=== PATIENT | male | born 1970 | race Caucasian/White ===

== ENCOUNTER 2016-12-15 16:04 | Emergency (ER) | payer OTHER ==
--- NOTE | 2016-12-15 17:31 | DIAGNOSTIC IMAGING REPORT ---
PROCEDURE: XR CHEST 2 VIEW INDICATION: COUGH TECHNIQUE: PA and lateral view. COMPARISON: None. FINDINGS: Minor left basilar scarring. Cardiovascular structures are normal. Bony thorax is unremarkable. IMPRESSION: 1. Minor left basilar scarring
--- NOTE | 2016-12-15 19:03 | ED NURSING NOTES ---
Clinical Report - Nurses [facility] [place] [address] 12/15/2016 16:07 Patient: JUDY LEVI TRIAGE Triage time 16:15 Dec 15 2016. Acuity: LEVEL 3. Chief Complaint: "FLU", FEVER, COUGH and BODY ACHES. Alert. KARTHIKEYAN COMA SCORE: Charlotte Coma Scale: 15- eyes open spontaneously (4); best verbal response- oriented x 4 (5); best motor response- obeys commands (6). --16:28 Matt Ta R.N. 16:16 12/15/16. BP: 115/75. HR: 80. RR: 20. O2 saturation: 97%. Temp: 100.3 F (oral). Pain level now: 5/10. Additional comments: pain at top of the head . --16:28 Matt Ta R.N. Weight: 97.7 kg stated. Height/Length: 70 inches Per Patient. BMI: 30.9. --16:23 Matt Ta R.N. Medications Tamiflu Oral 75 mg, 2x a day. --16:25 Matt Ta R.N. Vicodin Oral 2.5mg, PRN. --16:26 Matt Ta R.N. Allergies No Known Drug Allergy. --16:25 Matt Ta R.N. History Arrived by private vehicle. Historian: patient. Accompanied by spouse. ( Diagnosed with Influenza "A" on 12/13/16. Feeling more SOB. Pain on the top of his head and his chest hurts when takes a deep breath and coughs.). Onset. (about 4 days ago). He has had fatigue and a headache. ( joint pain (knees)). PAST MEDICAL HX: Immunizations: up-to-date. SOCIAL HX: Never smoker. No alcohol use or drug use. No recent travel. No infectious disease exposure. ABUSE ASSESSMENT: No report of abuse. FALL RISK ASSESSMENT: Fall risk assessment completed. No fall risk identified. NUTRITIONAL RISK ASSESSMENT: The nutritional risk assessment revealed no deficiencies. FUNCTIONAL ASSESSMENT: Functional assessment: no impairments noted. LEARNING NEEDS ASSESSMENT: The learning needs assessment revealed no barriers. SKIN INTEGRITY ASSESSMENT: Skin integrity risk assessment completed. No skin integrity risk identified. --16:28 Matt Ta R.N. ADDITIONAL SURGERIES: Wrist (fusion). --16:28 Matt Ta R.N. Interventions ID band on patient. To treatment room. --16:28 Matt Ta R.N. PHYSICAL ASSESSMENT Ambulatory to room. GENERAL / NEURO / PSYCH: Alert. Oriented X 4. HEENT: Pupils equal, round and reactive to light. RESPIRATORY: Wheezing present. CVS: Normal sinus rhythm noted. Pulses within normal limits. GI / : Abdomen soft and nontender. SKIN: Skin intact. Skin is warm and dry. Normal skin turgor. --16:29 Matt Ta R.N. NURSING PROGRESS NOTES Patient gowned. Reassurance given. Patient identifiers checked. Call light placed in reach. Side rails up x 1. Bed placed in lowest position. Brakes of bed on. Patient ready for evaluation- chart flagged and ED physician notified. --16:29 Matt Ta R.N. 16:50 12/15/2016 Site #1 started via IV in the right antecubital space with an 20g angiocath, with aseptic technique and good blood return; one attempt. Blood drawn: rainbow set. Labeled in the presence of the patient and sent to the lab. Saline lock flushed with 10 mL saline. --17:06 Matt Ta R.N. 16:55 12/15/2016 Started bag #1 1000 mL IV Fluids IV NS (Saline); at 1000 mL/hr over 60 minute(s) via site #1. Allergies verified and confirmed 5 rights. IV patency established. IV site checked: no pain, redness, or swelling. IV flushed thoroughly pre- and post-medication administration. --17:07 Matt Ta R.N. 17:00 12/15/2016 Toradol IVP 30 mg given over 2 minute(s) via site #1. Allergies verified and confirmed 5 rights. IV patency established. IV site checked: no pain, redness, or swelling. IV flushed thoroughly pre- and post-medication administration. IVP given by RN. --17:07 Matt Ta R.N. 17:30 12/15/2016 IV Fluids IV NS Bag Change: bag #1 infused. Total amount infused: 1000. STARTED bag #2 at 1000 mL/hr. Confirmed 5 rights. IV patency established. IV site checked: no pain, redness, or swelling. IV flushed thoroughly. --17:32 Matt Ta R.N. 18:24 12/15/16. BP: 109/74 (regular adult cuff) taken on the left arm, via an automated monitor, while sitting. HR: 82. RR: 26 (regular and labored). O2 saturation: 96% on room air. O2 started via face mask. Temp: 99.5 F (oral). --18:26 Carrie Sims EKG time: (18:17). EKG was performed by a tech and shown to the ED physician. --18:26 Carrie Sims 18:30 12/15/2016 IV Fluids IV NS Discontinued: bag #2 infused. Total amount infused: 1000 mL. IV patency established. IV site checked: no pain, redness, or swelling. IV flushed thoroughly. --18:40 Matt Ta R.N. 18:32 12/15/2016 TYLENOL W CODEINE (Acetaminophen-Codeine) PO Oral Suspension 10 mL given. Allergies verified and confirmed 5 rights. --18:32 Matt Ta R.N. Locked/Released at 12/16/2016 10:27 by Angela Robles R.N.
--- NOTE | 2016-12-15 19:03 | ED ORDER SUMMARY ---
..... Patient: JUDY LEVI OrderSheet [facility] VisitID: [id number] [address] [place] [address] 46y, M Registration Date/Time: 12/15/2016 ORDER SHEET Weight: 97.7 kg (stated) Allergies: No Known Drug Allergy GENERAL ORDERS: Chest 2V Urgent (16:35 12/15/2016 EKoroleva P.A.-C) (Ack 16:37 RKaruga) (16:59 [facility]) CBC w Diff Urgent (16:36 12/15/2016 EKoroleva P.A.-C) (Ack 16:37 RKaruga) (17:07 JRomanelli R.N.) BMP Urgent (16:36 12/15/2016 EKoroleva P.A.-C) (Ack 16:37 RKaruga) (17:07 JRomanelli R.N.) D-Dimer Urgent (17:58 12/15/2016 EKoroleva P.A.-C) (Ack 18:17 RKaruga) (18:28 JRomanelli R.N.) Troponin-I Urgent (17:58 12/15/2016 EKoroleva P.A.-C) (Ack 18:17 RKaruga) (18:28 JRomanelli R.N.) EKG - ER Stat (17:58 12/15/2016 EKoroleva P.A.-C) (Ack 18:17 RKaruga) (18:19 RKaruga) Vitals (18:07 12/15/2016 EKoroleva P.A.-C) (18:32 JRomanelli R.N.) MEDICATION ORDERS: DuoNeb Neb Tx 1 unit dose (NOW) (18:02 12/15/2016 EKoroleva P.A.-C) Tylenol w Codeine PO 10 mL (cough) (18:12 12/15/2016 EKoroleva P.A.-C) (18:32 JRomanelli R.N.) IV FLUIDS: IV NS : initial bolus 750 mL (1000 mL/hr), then 1000 mL/hr for X1 (NOW); Rajinder (16:35 12/15/2016 Lynette Aranda) (17:07 Cary Reyes) Toradol IV 30 mg (NOW) (16:35 12/15/2016 Lynette Aranda) (17:07 Cary Reyes) ORDER SHEET NOTES: [Electronically signed by Ines Cline P.A.-C (19:46 12/15/2016)] [Electronically signed by Angela Robles R.N. (10:27 12/16/2016)] [Electronically locked/signed by Angela Robles R.N. (10:12/16/2016)]
--- NOTE | 2016-12-15 19:03 | ED CLINICAL REPORT ---
Clinical Report - Physicians/Mid Levels [facility] [address] [place] [address] 12/15/2016 16:07 Patient: JUDY LEVI Time Seen: 16:45 Dec 15 2016. Arrived- By private vehicle. Historian- patient. HISTORY OF PRESENT ILLNESS Chief Complaint: COUGH and FEVER. This started 3 days and is still present. No sputum production, chest discomfort or nasal congestion or discharge. He has had chills and muscle aches. (sob over last 2 days, recent influenza dx, worsening of sx, continued fever/ cough, taking vicodin, has not taken anything else in addition such as tyelnol/ motrin for fever. Taking tamiflu . Myalgias/ weakness, decrease appetite, lack of energy). Additional history - The patient has had contact with a sick individual. REVIEW OF SYSTEMS The patient has had a headache. No nausea, vomiting, diarrhea, abdominal pain or hay fever. No skin rash or enlarged lymph nodes. All systems otherwise negative, except as recorded above. SOCIAL HISTORY Never smoker. No alcohol use or drug use. ADDITIONAL NOTES The nursing notes have been reviewed. PHYSICAL EXAM Vital Signs: 12/15/2016 16:16 BP: 115/75. HR: 80. RR: 20. O2 saturation: 97%. Temp: 100.3 F. Pain level now: 5/10. Appearance: Alert. Eyes: Eyes normal inspection. ENT: Ears normal. Nose normal. Pharynx normal. Neck: Normal inspection. CVS: Normal heart rate and rhythm. Heart sounds normal. Normal rhythm. No cardiac murmur. Respiratory: No respiratory distress. Respiratory distress. Retractions. Accessory muscle use. Breath sounds normal. No rales or rhonchi. Abdomen: Soft. No organomegaly. No guarding. Skin: Skin warm. Normal skin color. Neuro: Oriented X 3. LABS, X-RAYS, AND EKG EKG: EKG time: (1816). No acute process. No acute ischemia. Rate: 75. Normal P waves. Normal CATHERINE. Normal QRS complex. Normal ST and T waves and QT. Prior EKG unavailable. The study has been interpreted contemporaneously. The study has been independently viewed by me. The EKG appears to be a good tracing. Chest X-ray: (IMPRESSION: 1. Minor left basilar scarring Electronically Final signed by:Paco Mckeon MD 12/15/2016 5:31:05 PM). Laboratory Tests: CBC w Diff: (ROSENDA: 12/15/2016 16:40) ( VtgRcvd 12/15/2016 16:53) Final results Test Result Flag Units (Reference) WHITE BLOOD COUNT 10.6 K/uL (4.5-11.5) RED BLOOD COUNT 5.35 M/uL (4.50-5.90) HEMOGLOBIN 15.4 gm/dL (13.5-17.5) HEMATOCRIT 47.0 % (41.0-53.0) MEAN CELL VOLUME 88 fL (80-100) MEAN CORPUSCULAR HGB 29 pg (26-34) MEAN CORPUSCULAR HGB CONC 33 g/dL (31-37) RED CELL DISTRIBUTION WIDTH 13.8 % (11.6-14.8) PLATELET COUNT 167 K/uL (150-400) NEUTROPHIL % 63.2 % (50-75) LYMPH % 28.2 % (25-40) MONO % 6.9 % (3-14) EOSINOPHIL % 0.4 % (0-4) BASOPHIL % 1.3 % (0-2) [id number]: (ROSENDA: 12/15/2016 16:40) ( VtgRcvd 12/15/2016 18:14) Final results Test Result Flag Units (Reference) D-DIMER QUANTITATIVE 0.47 ug/mLFEU (0.27-0.52) The primary value of this quantitative assay relates toits negative predictive value (i.e. exclusion) of pulmonaryembolism/deep vein thrombosis/DIC.Elevated levels of d-dimer may also occur with:, age, cancer, inflammation, liver disease,post-op, infection, hematoma, coronary disease, peripheralarteriopathy, bleeding disorders and thrombolytic treatment.Results should be correlated with other clinical andradiological data.Testing Methodology: Latex Immunoassay Troponin-I: (ROSENDA: 12/15/2016 16:40) ( MsgRcvd 12/15/2016 18:30) Final results Test Result Flag Units (Reference) TROPONIN I <0.05 ng/mL (0.00-1.5) TROPONIN REFERENCE RANGE:<0.1 NEGATIVE0.1-1.5 INDETERMINANT>1.5 POSITIVE BMP: (ROSENDA: 12/15/2016 16:40) ( MsgRcvd 12/15/2016 17:09) Final results Test Result Flag Units (Reference) GLUCOSE 95 mg/dL (70-110) BUN 13 mg/dL (7-18) CREATININE 1.2 mg/dL (0.6-1.3) Estimated GFR >60 mL/min Estimated GFR- >60 mL/min Note: Persistent reduction over 3 months in eGFR<60 mL/min/1.73 m2 defines CKD. Patients with eGFR values>=60 mL/min/1.73 m2 may also have CKD if evidence ofpersistent proteinuria. Additional information may be foundat www.kidney.org. SODIUM 138 mmol/L (136-145) POTASSIUM 3.7 mmol/L (3.5-5.1) CHLORIDE 102 mmol/L (98-107) CARBON DIOXIDE 24 mmol/L (21-32) CALCIUM 8.6 mg/dL (8.5-10.1) . PROGRESS AND PROCEDURES Course of Care: Pt primary complaint is sob, denies h/o lung/ cardiac etiology. He appears uncomfortable on exam, no wheezing, and reports chest heaviness, i informed the patient that I am concerned for him as he continues to appear uncomfortable, and further work up including ensuring cardiac etiology would be done. further workup includes d-dimer, troponin. The suspicion for acute ACS, PE is low. No signs of infiltrate. Patient has improved with his temperature. Given breathing treatment, we'll continue outpatient albuterol as well. Stable. 12/15/2016 18:24 BP: 109/74. HR: 82. RR: 26. O2 saturation: 96%. Temp: 99.5 F. Patient is stable. Symptoms better. Patient/family counseled. Differential Diagnosis: I considered viral bronchitis, laryngotracheobronchitis, viral pneumonia, bacterial bronchitis, bacterial tracheobronchitis, chronic bronchitis, bacterial pneumonia, tuberculosis, lung abscess, mycoplasmal bronchitis, mycoplasmal pneumonia, chlamydial bronchitis, chlamydial pneumonia, bronchospasm, allergic bronchospasm, irritant bronchospasm, lung cancer, pulmonary embolism, adverse drug reaction and psychogenic etiology as a possible cause of cough in this patient. This is a partial list of diagnoses considered. Disposition: Discharged. CLINICAL IMPRESSION Influenza type A with upper respiratory infection and bronchitis. INSTRUCTIONS Alternate Tylenol (Acetaminophen) or Motrin (Ibuprofen) for fever control. Take according to label instructions. Do not work for two days. Drink plenty of fluids. (if fevers take 650 mg tylenol, and 3 hours later take 600 to 800 mg Motrin for FEVERS.). Warnings: Further evaluation is necessary. Prescription Medications: Ventolin HFA oral inhaler: inhale 1 puff every 6 hours for 1 week, as needed for wheezing, until symptoms improve. Dispense one (1) unit. No refill. Substitution is not permissible. Ibuprofen 800 mg tablets: take 1 tablet orally every 6 hours for 5 days, as needed for pain. Dispense fifteen (15). No refill. Tylenol with Codeine Liquid, 12 mg / 120 mg / 5 mL: take 1-2 teaspoons every 6 hours as needed for pain. Dispense one hundred twenty (120) mL. No refill. Substitution is permissible. Follow-up: Follow up with your doctor in four days as needed. (Electronically signed by Ines Cline P.A.-C 12/15/2016 19:46)
--- NOTE | 2016-12-15 19:03 | ED ORDER SUMMARY ---
..... Patient: JUDY LEVI OrderSheet [facility] VisitID: [id number] [address] [place] [address] 46y, M Registration Date/Time: 12/15/2016 ORDER SHEET Weight: 97.7 kg (stated) Allergies: No Known Drug Allergy GENERAL ORDERS: Chest 2V Urgent (16:35 12/15/2016 EKoroleva P.A.-C) (Ack 16:37 RKaruga) (16:59 [facility]) CBC w Diff Urgent (16:36 12/15/2016 EKoroleva P.A.-C) (Ack 16:37 RKaruga) (17:07 JRomanelli R.N.) BMP Urgent (16:36 12/15/2016 EKoroleva P.A.-C) (Ack 16:37 RKaruga) (17:07 JRomanelli R.N.) D-Dimer Urgent (17:58 12/15/2016 EKoroleva P.A.-C) (Ack 18:17 RKaruga) (18:28 JRomanelli R.N.) Troponin-I Urgent (17:58 12/15/2016 EKoroleva P.A.-C) (Ack 18:17 RKaruga) (18:28 JRomanelli R.N.) EKG - ER Stat (17:58 12/15/2016 EKoroleva P.A.-C) (Ack 18:17 RKaruga) (18:19 RKaruga) Vitals (18:07 12/15/2016 EKoroleva P.A.-C) (18:32 JRomanelli R.N.) MEDICATION ORDERS: DuoNeb Neb Tx 1 unit dose (NOW) (18:02 12/15/2016 EKoroleva P.A.-C) Tylenol w Codeine PO 10 mL (cough) (18:12 12/15/2016 EKoroleva P.A.-C) (18:32 JRomanelli R.N.) IV FLUIDS: IV NS : initial bolus 750 mL (1000 mL/hr), then 1000 mL/hr for X1 (NOW); Rajinder (16:35 12/15/2016 Lynette Aranda) (17:07 Cary Reyes) Toradol IV 30 mg (NOW) (16:35 12/15/2016 Lynette Aranda) (17:07 Cary Reyes) ORDER SHEET NOTES: [Electronically signed by Ines Cline P.A.-C (19:46 12/15/2016)] [Electronically signed by Angela Robles R.N. (10:27 12/16/2016)] [Electronically locked/signed by Angela Robles R.N. (10:12/16/2016)]
--- NOTE | 2016-12-16 10:27 | ED MAR SUMMARY ---
..... Medication Administration Record [facility] [address] [place] [address] Patient: JUDY LEVI Visit ID: [id number] 46y, M Weight: 97.7 kg Height/Length: 70 in BMI: 30.9 ALLERGIES: No Known Drug Allergy Start 16:55 12/15/2016 Matt Ta R.N., Stop 18:30 12/15/2016 Matt Ta R.N. Medication Administered: IV NS (SALINE), Dose: IV Fluids over 60 minute(s), Rate: 1000 mL/hr, Dispensed: 1000 mL bag, Site: #1 right AC. Medication Ordered: IV NS : initial bolus 750 mL (1000 mL/hr), then 1000 mL/hr for X1 (NOW); Rajinder. Given 17:00 12/15/2016 Matt Ta RJeffN. Medication Administered: TORADOL [IVP], Dose: 30 mg IVP over 2 minute(s), Site: #1 right AC. Medication Ordered: Toradol IV 30 mg (NOW). Given 18:32 12/15/2016 Matt Ta RJeffN. Medication Administered: TYLENOL W CODEINE [PO] (ACETAMINOPHEN-CODEINE), Dose: 10 mL Oral Suspension PO. Medication Ordered: Tylenol w Codeine PO 10 mL (cough).
--- NOTE | 2016-12-16 10:27 | ED MAR SUMMARY ---
..... Medication Administration Record [facility] [address] [place] [address] Patient: JUDY LEVI Visit ID: [id number] 46y, M Weight: 97.7 kg Height/Length: 70 in BMI: 30.9 ALLERGIES: No Known Drug Allergy Start 16:55 12/15/2016 Matt Ta R.N., Stop 18:30 12/15/2016 Matt Ta R.N. Medication Administered: IV NS (SALINE), Dose: IV Fluids over 60 minute(s), Rate: 1000 mL/hr, Dispensed: 1000 mL bag, Site: #1 right AC. Medication Ordered: IV NS : initial bolus 750 mL (1000 mL/hr), then 1000 mL/hr for X1 (NOW); Rajinder. Given 17:00 12/15/2016 Matt Ta RJeffN. Medication Administered: TORADOL [IVP], Dose: 30 mg IVP over 2 minute(s), Site: #1 right AC. Medication Ordered: Toradol IV 30 mg (NOW). Given 18:32 12/15/2016 Matt Ta RJeffN. Medication Administered: TYLENOL W CODEINE [PO] (ACETAMINOPHEN-CODEINE), Dose: 10 mL Oral Suspension PO. Medication Ordered: Tylenol w Codeine PO 10 mL (cough).
--- NOTE | 2016-12-16 10:27 | ED DISCHARGE INSTRUCTIONS ---
Patient: JUDY LEVI General Instructions [facility] VisitID: [id number] [address] [place] [address] 46y, M Registration Date/Time: 12/15/2016 Influenza type A with upper respiratory infection and bronchitis. INSTRUCTIONS Alternate Tylenol (Acetaminophen) or Motrin (Ibuprofen) for fever control. Take according to label instructions. Do not work for two days. Drink plenty of fluids. (if fevers take 650 mg tylenol, and 3 hours later take 600 to 800 mg Motrin for FEVERS.). Warnings: Further evaluation is necessary. Prescription Medications: Ventolin HFA oral inhaler: inhale 1 puff every 6 hours for 1 week, as needed for wheezing, until symptoms improve. Dispense one (1) unit. No refill. Substitution is not permissible. Ibuprofen 800 mg tablets: take 1 tablet orally every 6 hours for 5 days, as needed for pain. Dispense fifteen (15). No refill. Tylenol with Codeine Liquid, 12 mg / 120 mg / 5 mL: take 1-2 teaspoons every 6 hours as needed for pain. Dispense one hundred twenty (120) mL. No refill. Substitution is permissible. Follow-up: Follow up with your doctor in four days as needed. ADDITIONAL INFORMATION Influenza (Adult) Influenza, also called the flu, is a viral illness that affects the air passages of the lungs. It differs from the common cold. It is highly contagious. It may be spread through the air by coughing and sneezing or by direct contact (touching the sick person and then touching your own eyes, nose or mouth). Illness starts 1-3 days after exposure and lasts for 1-2 weeks. Antibiotics are usually not needed unless a complication appears (ear or sinus infection or pneumonia). Symptoms may be mild or severe and can include extreme tiredness (wanting to stay in bed all day), chills, fevers, muscle aching, soreness with eye movement, headache, and a dry, hacking cough. Home Care: Avoid exposure to cigarette smoke (yours or others). Tylenol or ibuprofen (Advil) will help fever, muscle aching, and headache. To avoid risk of liver injury, aspirin should not be used in children and teenagers under 18 with this illness. Nausea and loss of appetite are common. A light diet is recommended. Avoid dehydration by drinking 6-8 glasses of fluids per day (water, sport drinks like Gatorade, soft drinks without caffeine, juices, tea, soup, etc.). Extra fluids will also help loosen secretions in the nose and lungs. Jmxg-[id number] cold medicines will not shorten the duration of the illness but may be helpful for the following symptoms: cough (Robitussin DM); sore throat (Chloraseptic lozenges or spray); nasal and sinus congestion (Actifed or Sudafed). [NOTE: Do not use decongestants if you have high blood pressure.] Stay home until your fever has been gone for at least 24 hours (without the use of fever-reducing medications such as ibuprofen). Follow Up with your doctor or as directed by our staff if you are not improving over the next week. Note: If you are age 65 or older, or if you have chronic asthma or COPD, we recommend a pneumococcal vaccinationevery five years. All adults shouldreceive a yearly influenza vaccination every . Ask your doctor about this. Get Prompt Medical Attention if any of the following occur: Cough with lots of colored sputum (mucus) or blood in your sputum Chest pain, shortness of breath, wheezing, or difficulty breathing Severe headache, face, neck or ear pain New rash Fever of 100.4F (38C) oral or higher, not better with fever medication Confusion, behavior change or seizure Severe weakness or dizziness Fever Control (Adult) A fever is a natural reaction of the body to an illness. In most cases, the temperature itself is not harmful. It actually helps the body fight infections. A fever does not need to be treated unless you feel very uncomfortable. Home Care If you feel warm, check your temperature. If you feel very uncomfortable and your temperature is at or higher than 100.4F (38C) oral, you may take acetaminophen (Tylenol) every 4 to 6 hours. If you cant take or keep down oral medicine, ask your pharmacist for Tylenol suppositories, which you can get without a prescription. If the fever does not respond to acetaminophen within 1 hour, take ibuprofen (Advil or Motrin). If this works, keep taking the ibuprofen every 6 to 8 hours. Note: If you have chronic liver or kidney disease or ever had a stomach ulcer or GI bleeding, talk with your doctor before using these medications. If either medication alone does not keep the fever down, you may alternate the two medicines every 3 to 4 hours, only if your healthcare provider has instructed you to do so. For example, take Motrin then wait 3 hours, take Tylenol then wait 3 hours, take Motrin, and so on. Follow your healthcare providers instructions exactly. Clothing: Keep clothing light because excess body heat is lost through the skin. The fever will go up if you wear extra layers or wrap in blankets. Fluids: Fever causes the body to lose water through evaporation. Drink plenty of fluids such as water, juice, clear sodas, rashmi ursula, or lemonade. Do not use aspirin in anyone under 18 years of age who is ill with a fever. It can cause severe liver damage. Follow Up with your doctor or as advised by our staff if you do not get better after 48 hours. Get Prompt Medical Attention if any of the following occur: Fever does not get better after taking fever medication Fast or difficult breathing Earache, sinus pain, stiff or painful neck, headache, repeated diarrhea or vomiting You feel unusually irritable, drowsy, or confused A rash appears You feel weak or dizzy, or that you might faint Albuterol Sulfate Pressurized inhalation, suspension What is this medicine? ALBUTEROL (al BYOO ter ole) is a bronchodilator. It helps open up the airways in your lungs to make it easier to breathe. This medicine is used to treat and to prevent bronchospasm. How should I use this medicine? This medicine is for inhalation through the mouth. Follow the directions on your prescription label. Take your medicine at regular intervals. Do not use more often than directed. Make sure that you are using your inhaler correctly. Ask you doctor or health care provider if you have any questions. Talk to your dumper bailer operator regarding the use of this medicine in children. Special care may be needed. What side effects may I notice from receiving this medicine? Side effects that you should report to your doctor or health medical care manager as soon as possible: allergic reactions like skin rash, itching or hives, swelling of the face, lips, or tongue breathing problems chest pain feeling faint or lightheaded, falls high blood pressure irregular heartbeat fever muscle cramps or weakness pain, tingling, numbness in the hands or feet vomiting Side effects that usually do not require medical attention (report to your doctor or health medical care manager if they continue or are bothersome): cough difficulty sleeping headache nervousness or trembling stomach upset stuffy or runny nose throat irritation unusual taste What may interact with this medicine? anti-infectives like chloroquine and pentamidine caffeine cisapride diuretics medicines for colds medicines for depression or for emotional or psychotic conditions medicines for weight loss including some herbal products methadone some antibiotics like clarithromycin, erythromycin, levofloxacin, and linezolid some heart medicines steroid hormones like dexamethasone, cortisone, hydrocortisone theophylline thyroid hormones What if I miss a dose? If you miss a dose, use it as soon as you can. If it is almost time for your next dose, use only that dose. Do not use double or extra doses. Where should I keep my medicine? Keep out of the reach of children. Store at room temperature between 15 and 30 degrees C (59 and 86 degrees F). The contents are under pressure and may burst when exposed to heat or flame. Do not freeze. This medicine does not work as well if it is too cold. Throw away any unused medicine after the expiration date. Inhalers need to be thrown away after the labeled number of puffs have been used or by the expiration date; whichever comes first. Ventolin HFA should be thrown away 12 months after removing from foil pouch. Check the instructions that come with your medicine. What should I tell my health care provider before I take this medicine? They need to know if you have any of the following conditions: diabetes heart disease or irregular heartbeat high blood pressure pheochromocytoma seizures thyroid disease an unusual or allergic reaction to albuterol, levalbuterol, sulfites, other medicines, foods, dyes, or preservatives or trying to get breast-feeding What should I watch for while using this medicine? Tell your doctor or health medical care manager if your symptoms do not improve. Do not use extra albuterol. If your asthma or bronchitis gets worse while you are using this medicine, call your doctor right away. If your mouth gets dry try chewing sugarless gum or sucking hard candy. Drink water as directed. You have been given the following additional information: Influenza (Adult) Fever Control (Adult) Albuterol Sulfate Pressurized inhalation, suspension Do not work for two days. (Electronically signed by Ines Cline P.A.-C 12/15/2016 19:46)
--- NOTE | 2016-12-16 10:28 | ED MED RECONCILIATION SUMMARY ---
Patient: JUDY LEVI Medication Reconciliation Report [facility] VisitID: [id number] [address] [place] [address] 46y, M Registration Date/Time: 12/15/2016 Weight: 97.7 kg Height/Length: 70 in. BMI: 30.9 ALLERGIES: No Known Drug Allergy The patient's Home Medications are listed below: THE FOLLOWING MEDICATIONS NEED TO BE RECONCILED: Tamiflu Oral 75 mg, 2x a day Vicodin Oral 2.5mg, PRN The source(s) of the original Home Medication information: Not obtained. The following Medications were given to the patient in the Emergency Department: IV NS IV Fluids bolus 0, then 1000 mL/hr, administered: 12/15/2016 4:55:00 PM Toradol [IVP] IVP 30 mg, administered: 12/15/2016 5:00:00 PM TYLENOL W CODEINE [PO] PO 10 mL, administered: 12/15/2016 6:32:00 PM The following Medications were prescribed to the patient: Ventolin HFA oral inhaler: inhale 1 puff every 6 hours for 1 week, as needed for wheezing, until symptoms improve. Dispense one (1) unit. No refill. Substitution is not permissible. -- Ines Cline, P.A.-Chichi Ibuprofen 800 mg tablets: take 1 tablet orally every 6 hours for 5 days, as needed for pain. Dispense fifteen (15). No refill. -- Ines Cline, P.A.-C Tylenol with Codeine Liquid, 12 mg / 120 mg / 5 mL: take 1-2 teaspoons every 6 hours as needed for pain. Dispense one hundred twenty (120) mL. No refill. Substitution is permissible. -- Ines Cline, P.A.-C
--- NOTE | 2016-12-16 10:28 | ED MED RECONCILIATION SUMMARY ---
Patient: JUDY LEVI Medication Reconciliation Report [facility] VisitID: [id number] [address] [place] [address] 46y, M Registration Date/Time: 12/15/2016 Weight: 97.7 kg Height/Length: 70 in. BMI: 30.9 ALLERGIES: No Known Drug Allergy The patient's Home Medications are listed below: THE FOLLOWING MEDICATIONS NEED TO BE RECONCILED: Tamiflu Oral 75 mg, 2x a day Vicodin Oral 2.5mg, PRN The source(s) of the original Home Medication information: Not obtained. The following Medications were given to the patient in the Emergency Department: IV NS IV Fluids bolus 0, then 1000 mL/hr, administered: 12/15/2016 4:55:00 PM Toradol [IVP] IVP 30 mg, administered: 12/15/2016 5:00:00 PM TYLENOL W CODEINE [PO] PO 10 mL, administered: 12/15/2016 6:32:00 PM The following Medications were prescribed to the patient: Ventolin HFA oral inhaler: inhale 1 puff every 6 hours for 1 week, as needed for wheezing, until symptoms improve. Dispense one (1) unit. No refill. Substitution is not permissible. -- Ines Cline, P.A.-Chichi Ibuprofen 800 mg tablets: take 1 tablet orally every 6 hours for 5 days, as needed for pain. Dispense fifteen (15). No refill. -- Ines Cline, P.A.-C Tylenol with Codeine Liquid, 12 mg / 120 mg / 5 mL: take 1-2 teaspoons every 6 hours as needed for pain. Dispense one hundred twenty (120) mL. No refill. Substitution is permissible. -- Ines Cline, P.A.-C
== END 2016-12-15 19:20 | disposition home or self-care (01) ==
LOC: ED SRH 16:04
DX: J10.1 Influenza due to other identified influenza virus with other respiratory manifestations (principal); J40 Bronchitis, not specified as acute or chronic; R06.02 Shortness of breath
CPT/HCPCS: 90047; 90616; 91556; 95059